=== PATIENT | male | born 1985 | race African-American/Black ===

== ENCOUNTER 2025-01-04 00:29 | Emergency (ER) | payer OTHER ==
[~2025-01-04] VITALS: Ht 180.3 cm; Wt 84.8 kg
[2025-01-04] MEDS ORDERED: CARB200T6 PO ×2 (01:14→01:17)
[2025-01-04] MEDS ORDERED: PERP4TAB10 PO (01:14)
[2025-01-04] MEDS ORDERED: DIPH50 PO (01:15)
[2025-01-04] MEDS ORDERED: FAMO20TA8 PO (01:16)
[2025-01-04] MEDS: LACTATED RINGERS 1000ML 1,000 ML IV ONE (01:17)
[2025-01-04] MEDS ORDERED: LISI40TA9 PO (01:18)
[2025-01-04 01:29] LABS: BASOPHILS # (AUTO) 0.01 K/uL (0.00-0.20); BASOPHILS % (AUTO) 0.4 % (0.0-5.0); EOSINOPHILS # (AUTO) 0.03 K/uL (0.00-0.70); EOSINOPHILS % (AUTO) 1.2 % (0.0-8.0); LYMPHOCYTES # (AUTO) 1.2 K/uL (1.0-4.8); LYMPHOCYTES % (AUTO) 50.4 % (21.0-51.0); MEAN CORPUSCULAR HEMOGLOBIN 31.4 pg (27.0-33.0); MEAN CORPUSCULAR HGB CONC 34.1 g/dL (32.0-36.0); MEAN CORPUSCULAR VOLUME 91.9 fL (79-99); MONOCYTES # (AUTO) 0.4 K/uL (0.1-1.0); MONOCYTES % (AUTO) 16.9 % (3.0-13.0); NEUTROPHILS # (AUTO) 0.8 K/uL (1.8-7.7); NEUTROPHILS % (AUTO) 31.1 % (40.0-77.0); PLATELET COUNT (AUTO) 132 K/uL (130-400); RED BLOOD CELL COUNT(AUTO) 4.46 MIL/uL (4.50-6.20); RED CELL DISTRIBUTION WIDTH 12.8 % (11.0-15.5); WHITE BLOOD COUNT (AUTO) 2.4 K/uL (4.8-10.8)
[2025-01-04 01:34] LABS: CARBON DIOXIDE 28 mmol/L (21-32); CHLORIDE 105 mmol/L (101-111); CREATININE 1.3 mg/dL (0.5-1.3); GLOMERULAR FILTR. RATE CALC 72 mL/min (>90); GLUCOSE,RANDOM 99 mg/dL (70-105); POTASSIUM 3.8 mmol/L (3.5-5.1); SODIUM SERUM 141 mmol/L (136-145); UREA NITROGEN, BLOOD 10 mg/dL (7-18)
[2025-01-04 01:41] LABS: ADD UA MICROSCOPIC YES; APPEARANCE,URINE CLEAR (CLEAR); BILIRUBIN,URINE NEGATIVE (NEGATIVE); COLOR,URINE LIGHT-YELLOW (YELLOW); GLUCOSE, URINE (UA) NEGATIVE (NEGATIVE); KETONES,URINE NEGATIVE (NEGATIVE); LEUKOCYTE ESTERASE ,URINE NEGATIVE Leu/uL (NEGATIVE); NITRATE,URINE NEGATIVE (NEGATIVE); OCCULT BLOOD,URINE MODERATE (NEGATIVE); PH,URINE 5.5 (5.0-8.0); PROTEIN,URINE NEGATIVE (NEGATIVE); UROBILINOGEN,URINE 0.2 mg/dL (0.2-1.0)
[2025-01-04 01:46] LABS: RAPID GROUP A STREP negative (NEGATIVE)
[2025-01-04 01:48] LABS: AMPHET/METH SCREEN,URINE NEGATIVE (NEGATIVE); BARBITURATE SCREEN, URINE NEGATIVE (NEGATIVE); BENZODIAZEPINES SCREEN,URINE NEGATIVE (NEGATIVE); CANNABINOID SCREEN,URINE NEGATIVE (NEGATIVE); COCAINE SCREEN,URINE NEGATIVE (NEGATIVE); OPIATE SCREEN,URINE NEGATIVE (NEGATIVE); PHENCYCLIDINE SCREEN,URINE NEGATIVE (NEGATIVE)
[2025-01-04 01:50] LABS: SARS-CoV-2, RNA, NAAT NEGATIVE SARS CoV-2 (NEGATIVE)
[2025-01-04 01:54] LABS: ACETAMINOPHEN < 1 mcg/mL (10-29); ALCOHOL, BLOOD < 3 mg/dL (0-10); SALICYLATE < 2.8 mg/dL (2.8-20.0)
[2025-01-04 01:56] LABS: BAND NEUTROPHILS % (MANUAL) 2 % (0-2); LYMPHOCYTES % (MANUAL) 32 % (22-44); MAN.DIFF COMMENT-IMPRESSION MANUAL DIFFERENTIAL; MONOCYTES % (MANUAL) 20 % (2-9); PLATELET MORPHOLOGY COMMENT ADEQUATE; REACTIVE LYMPHOCYTES 2 % (0-0); SEGMENTED NEUTROPHILS % 44 % (40-70); TOTAL CELLS COUNTED 100
[2025-01-04 01:56] LABS: INFLUENZA TYPE A Negative For Type A (NEGATIVE)
[2025-01-04 01:57] LABS: CREATINE KINASE, TOTAL 911 U/L (21-232)
[2025-01-04 01:58] LABS: INFLUENZA TYPE B Positive For Type B (NEGATIVE)
[2025-01-04 01:58] LABS: BACTERIA,URINE RARE /HPF (None Seen); MUCUS,URINE RARE LPF (None Seen); WBC,URINE 0-1 /HPF (0-1)
[2025-01-04] MEDS: ketOROlac 15MG/ML VIAL (15MG/ML) IM ONE (02:02)
[2025-01-04] MEDS: acetaMINOPHEN 500 MG TABLET PO ONE (02:41)
[2025-01-04] MEDS: acetaMINOPHEN 500 MG TABLET ONE (02:41)
--- NOTE | 2025-01-04 03:23 | NUR ---
[facility] NOTIFICATION OF ADMISSION SPOKE WITH KINJAL AT [facility] , [facility] DOES NOT HAVE ANY TELEMETRY BEDS AVAILABLE, PATIENT MAY BE TRANSFERRED LOCALLY FOR NEUROLOGY. WILL NOTIFY [facility] OF FACILITY PATIENT IS TRANSFERRED TO WHEN INFORMATION IS AVAILABLE.
[2025-01-04] MEDS: 0.9% NACL 500ML IV.SOLN 500 ML IV ONE (03:41)
[2025-01-04] MEDS: OSELTAMIVIR PHOSPHATE 75 MG CAP PO ONE (03:41)
--- NOTE | 2025-01-04 03:44 | NUR ---
TRANSFER CALL PLACED TO [facility] [employer] [facility] TO INITIATE TRANSFER FOR NEUROLOGY SERVICES
--- NOTE | 2025-01-04 04:01 | ERN ---
ED Note History of Present Illness Stated Complaint: SEIZURE, FEVER, COUGH, BODY ACHES Chief Complaint: Seizure Time Seen by MD: 00:35 Dictation: This is a 39-year-old male from the correctional facility brought to the emergency room from [facility] for evaluation of a seizure activity. Patient also reported fever cough and body aches and emesis. As per the officers apparently patient started having a seizure activity that none of them have witnessed but within a short time when the officers got to him he had a blank stare and was unresponsive and they were not sure if he was breathing. As they transferred him to the [facility] and about to transport patient had large emesis and became more responsive. Has no recollection of the event. The event must have lasted 1-1/2 minutes No bladder or bowel incontinence. No tongue biting. He was complaining of terrible body aches when he came in and that he does not feel well. Patient denied having any seizure activity. No fall. Patient is not on any blood thinners no injury to the head and he was apparently in a position on his bunk bed .patient stated that he has been sick for a few days. Temperature 101.7 pulse 84 respirations 16 blood pressure 141/82 with a pulse oximetry of 97% on room air Patient has a long history of hypertension and schizoaffective disorder. He is on Tegretol phenothiazines. Allergies: Coded Allergies: No Known Drug Allergies (Unverified Allergy, Unknown, 01/04/25) Home Meds Reported Medications Lisinopril (Lisinopril) 40 Mg Tablet, 1 TAB PO DAILY for HYPERTENSION for 30 Days, #30 TAB 0 Refills 01/04/25 Carbamazepine (Carbamazepine) 200 Mg Tablet, 200 MG PO PM for SCHIZOAFFECTIVE DISORDER, #2 TAB 01/04/25 Famotidine (Famotidine) 20 Mg Tablet, 1 TAB PO BID for GERD for 30 Days, #60 TAB 0 Refills 01/04/25 Diphenhydramine HCl (Benadryl) 50 Mg Cap, 1 CAP PO HS for ATOPIC DERMATITIS for 30 Days, #30 CAP 0 Refills 01/04/25 Perphenazine (Perphenazine) 4 Mg Tablet, 4 MG PO PM for SCHIZOAFFECTIVE DISORDER, #3 TAB 01/04/25 Carbamazepine (Carbamazepine) 200 Mg Tablet, 200 MG PO AM for SCHIZOAFFECTIVE DISORDER, TAB 5/16/25 Past Medical History Past Medical History: GERD, Hypertension, Schizophrenia, Other Additional Past Medical Hx: ATOPIC DERMATITIS Surgical History: Other Surgical History Other: R FEMUR FX Family History: Negative Social History: Negative RN Note Reviewed/Agreed w/PFSH: Yes Review of System Dictation Constitutional: , positive for fever and chills and body aches, Eyes: Negative for injury, pain,redness, and discharge ENT: Negative for injury,pain or swelling Cardiovascular: Negative for chest pain, palpitations, and edema Respiratory: Negative for shortness of breath, cough, and wheezing, Abdomen/GI: Negative for abdominal pain, positive for nausea, vomiting, diarrhea, and constipation Back: Negative for injury and pain : Negative for injury, bleeding and discharge MS/Extremity: Negative for injury and deformity Skin: Negative for rash, and discoloration Neuro: Negative for headache, weakness, numbness, tingling, and seizure Psych: Negative for suicide ideation, homicidal ideation, and hallucinations Initial Vital Sign VS Vital Signs Date Time Temp Pulse Resp B/P (MAP) Pulse Ox O2 Delivery O2 Flow Rate FiO2 01/04/25 00:31 101.7 84 16 141/82 99 Nasal Cannula 2.0 01/04/25 00:39 21 Physical Exam Dictation General: awake, alert, NAD very thin ill-appearing emaciated male, looks sick He is in shackles in the front Head/Face: Normocephalic, atraumatic Eyes: PERRL, EOMI, vision at baseline ENT: Mucous membranes are dry TMs clear, no signs of infection Neck: Trachea midline, supple, no nuchal rigidity Cardiovascular: RRR, normal S1/S2, No MRGs, no JVD Respiratory: CTAB, no respiratory distress, No rales or wheezes Abdomen: Soft, non-tender, non-distended, normal bowel sounds, no guarding or rebound. Skin: Warm, dry, normal turgor, no rash MS/Extremity: Pulses equal, no cyanosis, neurovascular intact, FROM Neuro: COAx4, GCS 15, strength 5/5, CN 2-12 intact, normal cerebellar exam, normal gait, Psych: Normal behavior, mood, and affect normal Extremities-trace edema without any palpable cords, Homans sign is negative Results (Laboratory/Radiology) Laboratory/Radiology Laboratory Tests Test 01/04/25 01:12 01/04/25 01:17 01/04/25 01:28 White Blood Count 2.4 K/uL (4.8-10.8) L Red Blood Count 4.46 MIL/uL (4.50-6.20) L Hemoglobin 14.0 g/dL (14.0-18.0) Hematocrit 41.0 % (42-54) L Mean Corpuscular Volume 91.9 fL (79-99) Mean Corpuscular Hemoglobin 31.4 pg (27.0-33.0) Mean Corpuscular Hemoglobin Concent 34.1 g/dL (32.0-36.0) Red Cell Distribution Width 12.8 % (11.0-15.5) Platelet Count 132 K/uL (130-400) Mean Platelet Volume 10.4 fL (7.5-10.5) Immature Granulocyte % (Auto) 0.0 % (0-1) Neutrophils (%) (Auto) 31.1 % (40.0-77.0) L Lymphocytes (%) (Auto) 50.4 % (21.0-51.0) Monocytes (%) (Auto) 16.9 % (3.0-13.0) H Eosinophils (%) (Auto) 1.2 % (0.0-8.0) Basophils (%) (Auto) 0.4 % (0.0-5.0) Neutrophils # (Auto) 0.8 K/uL (1.8-7.7) L Lymphocytes # (Auto) 1.2 K/uL (1.0-4.8) Monocytes # (Auto) 0.4 K/uL (0.1-1.0) Eosinophils # (Auto) 0.03 K/uL (0.00-0.70) Basophils # (Auto) 0.01 K/uL (0.00-0.20) Absolute Immature Granulocyte (auto 0.00 K/uL (0-1) Segmented Neutrophils % 44 % (40-70) Band Neutrophils % 2 % (0-2) Lymphocytes % (Manual) 32 % (22-44) Monocytes % (Manual) 20 % (2-9) H Nucleated Red Blood Cells 0.0 % (0.0-0.19) Differential Comment MANUAL DIFFERENTIAL Reactive Lymphocytes 2 % (0-0) H White Cell Morphology Comment Platelet Morphology Comment ADEQUATE Red Blood Cell Morphology HYPOCHROM CELLS 1+ Sodium Level 141 mmol/L (136-145) Potassium Level 3.8 mmol/L (3.5-5.1) Chloride Level 105 mmol/L (101-111) Carbon Dioxide Level 28 mmol/L (21-32) Blood Urea Nitrogen 10 mg/dL (7-18) Creatinine 1.3 mg/dL (0.5-1.3) Glomerular Filtration Rate Calc 72 mL/min (>90) Random Glucose 99 mg/dL (70-105) Total Calcium 8.1 mg/dL (8.5-10.1) L Total Creatine Kinase 911 U/L (21-232) *H Salicylates Level < 2.8 mg/dL (2.8-20.0) L Acetaminophen Level < 1 mcg/mL (10-29) L Serum Alcohol < 3 mg/dL (0-10) Influenza Type A Antigen Negative For Type A Influenza Type B Antigen Positive For Type B SARS-CoV-2, RNA, NAAT NEGATIVE SARS CoV-2 Group A Streptococcus Rapid negative (NEGATIVE) Urine Color LIGHT-YELLOW (YELLOW) Urine Appearance CLEAR (CLEAR) Urine pH 5.5 (5.0-8.0) Urine Specific [place] 1.019 (1.001-1.031) Urine Protein NEGATIVE mg/dL (NEGATIVE) Urine Glucose (UA) NEGATIVE mg/dL (NEGATIVE) Urine Ketones NEGATIVE mg/dL (NEGATIVE) Urine Occult Blood MODERATE (NEGATIVE) H Urine Nitrate NEGATIVE (NEGATIVE) Urine Bilirubin NEGATIVE mg/dL (NEGATIVE) Urine Urobilinogen 0.2 mg/dL (0.2-1.0) Urine Leukocyte Esterase NEGATIVE Sherice/uL Urine RBC 11-25 /HPF (0-1) H Urine WBC 0-1 /HPF (0-1) Urine Bacteria RARE /HPF (None Seen) Urine Opiates Screen NEGATIVE (NEGATIVE) Urine Barbiturates Screen NEGATIVE (NEGATIVE) Urine Phencyclidine Screen NEGATIVE (NEGATIVE) Urine Amphetamines Screen NEGATIVE (NEGATIVE) Urine Benzodiazepines Screen NEGATIVE (NEGATIVE) Urine Cocaine Screen NEGATIVE (NEGATIVE) Urine Marijuana (THC) Screen NEGATIVE (NEGATIVE) Labs Reviewed?: Yes ED Course ED Course Orders Procedure Category Date Status Time Cbc With Differential LAB 01/04/25 Complete 00:35 Alcohol, Blood LAB 01/04/25 Complete 00:35 Salicylate LAB 01/04/25 Complete 00:35 Acetaminophen LAB 01/04/25 Complete 00:35 Urinalysis Profile LAB 01/04/25 Complete 00:35 Chest 1vw RAD 01/04/25 Taken 00:35 12 Lead Ekg Tracing- EKG 01/04/25 Logged Technical 00:35 Lactated Ringers PHA 01/04/25 Complete 1000ml (Lactated 01:00 Creatine Kinase, Total LAB 01/04/25 Complete 00:35 Basic Metabolic Panel LAB 01/04/25 Complete 00:35 Drug Screen Urine LAB 01/04/25 Complete 00:37 Covid Rna Naat LAB 01/04/25 Complete 00:43 Influenza Type A & B, LAB 01/04/25 Complete Rapid 00:43 Rapid (Group A Strep) LAB 01/04/25 Complete 00:43 Ketorolac PHA 01/04/25 Complete Tromethamine 15mg/Ml 01:30 0.9% Nacl 500ml PHA 01/04/25 Complete Iv.Soln (Ns 500ml 01:30 Manual Differential LAB 01/04/25 Complete 01:12 Acetaminophen 500mg PHA 01/04/25 Complete Tab (Tylenol 500mg T 02:09 Acetaminophen 500mg PHA 01/04/25 Complete Tab (Tylenol 500mg T 02:30 Oseltamivir Phosphate PHA 01/04/25 Complete (Tamiflu) 02:30 Ct Head/Brain W/O CT 01/04/25 Taken Contrast 02:14 Current Medications Medications (Trade) Dose Ordered Sig/Marky Route PRN Reason Start Time Stop Time Status Last Admin Dose Admin Acetaminophen (TYLenol 500MG TAB) 500 mg STK-MED ONCE .ROUTE 01/04/25 02:09 01/04/25 02:10 DC Acetaminophen (TYLenol 500MG TAB) 1,000 mg ONCE ONCE PO 01/04/25 02:30 01/04/25 02:33 DC 01/04/25 02:41 Ketorolac Tromethamine (toRADol) 15 mg ONCE ONCE IM 01/04/25 01:30 01/04/25 01:31 DC 01/04/25 02:02 Lactated Ringer's 1,000 ml @ 125 mls/hr ONCE ONCE IV 01/04/25 01:00 01/04/25 06:12 DC 01/04/25 01:17 Oseltamivir Phosphate (Tamiflu) 75 mg ONCE ONCE PO 01/04/25 02:30 01/04/25 02:33 DC 01/04/25 03:41 Sodium Chloride 500 ml @ 0 mls/hr ONCE ONCE IV 01/04/25 01:30 01/04/25 01:31 DC 01/04/25 03:41 Vital Signs Date Time Temp Pulse Resp B/P (MAP) Pulse Ox O2 Delivery O2 Flow Rate FiO2 01/04/25 05:09 98.4 60 16 98/70 98 Room Air* 0 01/04/25 04:01 98.4 64 14 109/61 99 Room Air* 0 01/04/25 03:15 100.8 73 18 132/63 98 Room Air* 0 01/04/25 02:41 102.6 01/04/25 00:39 102.6 82 20 136/71 96 Room Air* 0 01/04/25 00:31 101.7 84 16 141/82 99 Nasal Cannula 2.0 We will perform diagnostic labs, advanced imaging and administer medications according to the patient's complaint. Once the results are available, will review and personally interpreted the labs to rule out any acute life- threatening emergency the trach require immediate intervention and treatment. I will then re-evaluate the patient after treatment and diagnostic exams have return to determine whether the patient requires any further testing, can safely be discharged home or need further admission to hospital for additional treatment and evaluation. Viral swabs, CT scan of the head and labs requested 3:00 a.m. influenza B came back positive. CT scan of the head is pending 3:[address] scan of the head without contrast was negative for any acute intracranial hemorrhage midline shift or mass effect. Initiated transfer as there is no neurology services availability here for evaluation of new onset seizures. Charge nurse indicated that [facility] does not have any beds for transfer and the correctional system instructed to transfer him locally. circulation supervisor is making efforts to transfer to a facility with neurology services Medical Decision Making MDM MDM: Differential diagnosis: Sepsis, new onset seizures-unsure if related to infectious process, medications, dehydration lack of sleep Rationale: Tests considered and ordered secondary to shared decision making include: labs, ECG and radiology Previous outside records reviewed: Old ER visits. Risk of complication and/or morbidity or mortality of patient management: None Medications-Per medication reconciliation Need for hospitalization: Patient does meet criteria for hospitalization. Need for emergency major/minor surgery: No There are no social concerns with this patient. Prescription drug management Prescriptions will include symptomatic care Patient's prior external medical records from other ER visits were reviewed by me as indicated. Prior testing and results from previous visits were reviewed. Prior tests were taken into account with medical decision making and resource utilization, independent historian/historians were used to obtain complete medical history. I independently interpreted the test that were performed, results were reviewed by me and considered findings on radiology if ordered. Medical management and examination interpretation discussions were had by me with other qualified healthcare professionals as indicated for the patient's care. Patient will be transferred to [facility] for neurology services Problem List Problem List: (1) Influenza B (2) Seizure (3) Rhabdomyolysis (4) Schizoaffective disorder DX & DISP Disposition: Transfer Departure Impression: Primary Impression: Influenza B Additional Impressions: Seizure, Rhabdomyolysis, Schizoaffective disorder Condition: Stable Additional Instructions: The patient has been informed about all the diagnostic tests and procedures carried out in the emergency room today and has confirmed understanding of the results. Patient will be transferred to a facility that provides a higher level of care since such services are not accessible locally or within our immediate community. The patient is alert oriented and not experiencing any acute distress. There are no signs of sepsis and patient's hemodynamic status is stable at the moment. Medically, the patient is considered stable for transfer Patient transferred to [facility] to Dr. Talley service Referrals: SELF,REFERRAL (PCP) CANDY ARCHULETA MD January 04, 2025 04:01
[2025-01-04 04:04] VITALS: TEMP 98.4
--- NOTE | 2025-01-04 04:35 | NUR ---
TRANSFER PT. ACCEPTED @ 0425 BY Karime COLÓN MD FOR TRANSFER TO [facility]. REPORT: [phone]
--- NOTE | 2025-01-04 04:51 | NUR ---
[facility] CALLED FOR TRANSPORT OF MONITORED NEUROLOGY PT.
--- NOTE | 2025-01-04 05:01 | NUR ---
[facility] NOTIFIED OF ACCEPTING FACILITY, SPOKE WITH KINJAL
[2025-01-04 05:09] VITALS: BP 98/70; PULSE 60; RESP 16; TEMP 98.5; O2SAT 98
--- NOTE | 2025-01-04 05:27 | NUR ---
REPORT GIVEN TO NURSE PAGE FROM [facility], TO ER [facility]
--- NOTE | 2025-01-04 06:11 | NUR ---
PATIENT LEAVING VIA EMS AT THIS TIME, IS IN NO DISTRESS
--- NOTE | 2025-01-04 07:49 | EKG ---
[facility] Test Date: 2025-01-04 Test Time: 01:06:24 Pat Name: TANYA RAMÍREZ Department: ED Room: Gender: M Customer Service Voice: [phone] : 1985 Requested By: CANDY ARCHULETA Order Number: [id number] Reading MD: Valorie Merchant Measurements Intervals [place] Rate: 82 P: 75 MI: 180 QRS: 62 QRSD: 84 T: 58 QT: 349 QTc: 407 Interpretive Statements Sinus rhythm No previous ECG available for comparison Electronically Signed On 01-04-2025 18:39:39 CDT by Valorie Merchant Please click the below link to view image of tracing.
--- NOTE | 2025-01-04 08:27 | HMCIMG ---
Exam Type: CT HEAD/BRAIN W/O CONTRAST Clinical Information: seizures INfluenza B + Comparison: None CT Dose Index (CTDI): 57.33 mGy Dose Length Product (DLP): 956.79 total mGy-cm Findings: The examination is unremarkable. Holly-white matter junction is preserved. No intra or extra axial lesions or fluid collections are seen. Specifically, holly and white matter are normal in signal characteristics with normal caliber of ventricles and periventricular cisterns with no evidence of intra or or extra-axial hemorrhage, lacunar infarct, or major territorial infarct, mass, or other abnormality. There are no infarcts. There are no hemorrhages. Periventricular white matter locations are preserved. The orbital contents and structures of the posterior fossa are intact. Impression: Normal CT of the head. This study was performed using dose reduction techniques to include automated exposure control and/or adjustment of the mA and/or kV according to patient size.
--- NOTE | 2025-01-04 08:33 | HMCIMG ---
Exam Type: CHEST 1VW Clinical Information: seizure Comparison: None Findings: The lungs are clear of infiltrates. The heart is normal in size. The bony and soft tissue structures of the chest are unremarkable. Impression: Clear lungs.
== END 2025-01-04 06:10 | disposition short-term general hospital (02) ==
LOC: EEVIPCON 00:29 → EDH 00:29
DX: J10.1 Influenza due to other identified influenza virus with other respiratory manifestations (principal); R56.9 Unspecified convulsions; M62.82 Rhabdomyolysis; F25.9 Schizoaffective disorder, unspecified; I10 Essential (primary) hypertension; K21.9 Gastro-esophageal reflux disease without esophagitis; Z20.822 Contact with and (suspected) exposure to COVID-19; Z79.899 Other long term (current) drug therapy; Z98.890 Other specified postprocedural states
CPT/HCPCS: 99285; 96360; 70450; 71045; 87635; 96361; 82550; 80048; 80305; 85025; 87880; 87804 ×2; 36415; 93005; 81001; 96372; J1885; G0481; J7040; J7120